=== PATIENT | female | born 1965 | race Hispanic/Latino ===

== ENCOUNTER 2025-03-01 13:41 | Emergency (ER) | payer SELFPAY ==
[~2025-03-01] VITALS: Ht 165.1 cm; Wt 108.9 kg
[2025-03-01 14:27] VITALS: PULSE 85; RESP 16; TEMP 98.6; O2SAT 98
[2025-03-01 14:41] LABS: BASOPHILS # (AUTO) 0.1 (0.0-0.1); BASOPHILS % 0.9 % (0.0-1.0); EOSINOPHILS # (AUTO) 0.2 (0.0-0.4); EOSINOPHILS % 3.2 % (0.0-6.0); HEMATOCRIT 38.3 % (34.2-44.1); HEMOGLOBIN 13.1 g/dL (12.0-16.0); LYMPHOCYTES # (AUTO) 1.5 (1.0-3.2); LYMPHOCYTES % 22.3 % (18.0-39.1); MEAN CORPUSCULAR HEMOGLOBIN 28.4 pg (28-32); MEAN CORPUSCULAR HGB CONC 34.2 g/dL (31-35); MEAN CORPUSCULAR VOLUME 83.1 fL (81-99); MONOCYTES # (AUTO) 0.6 (0.2-0.8); NEUTROPHILS # (AUTO) 4.3 (2.1-6.9); NEUTROPHILS % 64.4 % (38.7-80.0); PLATELET COUNT 261 x10e3/uL (140-360); RED BLOOD COUNT 4.61 x10e6/uL (3.6-5.1); RED CELL DISTRIBUTION WIDTH 13.6 % (11.7-14.4); WHITE BLOOD COUNT 6.64 x10e3/uL (4.8-10.8)
[2025-03-01 14:51] LABS: CALCIUM 9.2 mg/dL (8.4-10.2); CREATININE, SERUM 0.96 mg/dL (0.57-1.11)
[2025-03-01 15:09] LABS: BILIRUBIN,URINE NEGATIVE (NEGATIVE); CLARITY,URINE CLOUDY (CLEAR); COLOR,URINE YELLOW (YELLOW); GLUCOSE, URINE NEGATIVE (NEGATIVE); KETONES,URINE NEGATIVE (NEGATIVE); LEUKOCYTE ESTERASE ,URINE TRACE (NEGATIVE); NITRITE,URINE NEGATIVE (NEGATIVE); PH,URINE 7 (5 - 7); PROTEIN,URINE DIPSTICK NEGATIVE (NEGATIVE); URINE UROBILINOGEN 0.2 mg/dL (0.2 - 1)
[2025-03-01 15:14] LABS: WBC,URINE (MAN) 0-5 /HPF (0-5)
[2025-03-01 15:15] LABS: BACTERIA,URINE FEW /HPF
[2025-03-01] MEDS ORDERED: NAPROXEN250 MG PO (16:48)
== END 2025-03-01 17:39 | disposition home or self-care (01) ==
LOC: ER 14:31
DX: R10.9 Unspecified abdominal pain (principal); N28.89 Other specified disorders of kidney and ureter; R11.0 Nausea
CPT/HCPCS: 36415; 74176; 80048; 81001; 85025; 99284